=== PATIENT | female | born 1990 | race Caucasian/White ===

== ENCOUNTER 2024-04-25 09:40 | Outpatient (CLI) | payer OTHER, SELFPAY ==
--- NOTE | 2024-04-25 10:02 | XR_ITS ---
PROCEDURE INFORMATION: Exam: XR Abdomen Exam date and time: 04/25/2024 10:32 AM Age: 33 years old Clinical indication: Constipation; Additional info: Assessment of fecal burden TECHNIQUE: Imaging protocol: Radiologic exam of the abdomen. Views: Frontal supine view of the abdomen. 1 View. COMPARISON: No relevant prior studies available. FINDINGS: Gastrointestinal tract: Omjay-uv-wjliqkkr colonic stool burden. No bowel dilation. Organs: Intrauterine device projected over mid pelvis. Bones/joints: Unremarkable. IMPRESSION: Oeupg-qv-[id number] colonic stool burden.
[2024-04-25 11:38] LABS: Vitamin B12 463 pg/mL (239-931)
[2024-04-25 17:19] LABS: Ferritin 38.6 ng/ml (6.24-137)
[2024-04-26 15:12] LABS: Deamidated Gliadin Abs, IgA 2 units (0-19); Deamidated Gliadin Abs, IgG 2 units (0-19); Endomysial IgA Antibody Negative (Negative); Tissue Transglutaminase IgA Ab <2 U/mL (0-3); Tissue Transglutaminase IgG Ab <2 U/mL (0-5)
[2024-05-02 09:39] LABS: Reticulin IgA Antibody Negative titer (Neg:<1:2.5)
[2024-05-07 21:08] LABS: 1,25 Dihydroxy Vitamin D 62 pg/mL (.); 1,25-Dihydroxy, Vitamin D-2 <10 pg/mL (.); 1,25-Dihydroxy, Vitamin D-3 62 pg/mL (.)
== END 2024-04-25 23:59 | disposition home or self-care (01) ==
LOC: LAB 09:44
PROVIDERS: PCP Obstetrics & Gynecology; Visit Provider Internal Medicine Gastroenterology
DX: R53.83 Other fatigue (principal); R14.0 Abdominal distension (gaseous); R19.7 Diarrhea, unspecified; K59.00 Constipation, unspecified
CPT/HCPCS: 36415; 74018; 82607; 82652; 82728; 83516; 86255; 86256